=== PATIENT | male | born 1945 | race Caucasian/White ===

== ENCOUNTER 2017-11-09 07:27 | Day surgery (SDC) | payer MEDICARE, OTHER ==
[~2017-11-09] VITALS: Ht 180.3 cm; Wt 113.4 kg
[~2017-11-09 07:27] MED LIST: ASPIRIN EC325 MG PO; ATENOLOL25 MG PO; HYDROCHLOROTHIA25 MG PO; LIPITOR20 MG PO; METFORMIN HCL500 M2 PO; TYLENOL WITH C1 EACH PO; VALSARTAN160 MG PO
--- NOTE | 2017-11-09 08:27 | NUR ---
PT IS ALERT AND ORIENTED. HAS HAD SCOPES BEFORE, SEEMED TO HANDLE PREP WELL. PT HAS JUST RETURNED FROM VACATION IN [place] AND CHEERFUL. EXTENDED A BLESSING, WILL FOLLOW NEEDED
--- NOTE | 2017-11-09 09:10 | NUR ---
11/09/17 0910 Munira Baum TO PACU, RESP EVEN UNLABORED. ALERT AND AWAKE.
--- NOTE | 2017-11-10 10:43 | OR ---
[facility] [address] [place], [place] [address] Signed DATE OF OPERATION: 11/09/2017 SURGEON: Maine Luz MD PREOPERATIVE DIAGNOSIS: Family history of colon cancer (father, history of polyps). POSTOPERATIVE DIAGNOSIS: Polyps x3. PROCEDURE: Total colonoscopy to cecum with snare polypectomy x2 and cold morcellation polypectomy x1. ANESTHESIA: Intravenous sedation, fentanyl 100 mcg, Versed 8 mg. INDICATION: This 72-year-old white man is a patient of JUAN Tong and known to me from the past. He has undergone colonoscopy in the past, having adenomatous polyps. He has family history of colon cancer in his father. He is symptom-free at this time. He is admitted for surveillance colonoscopy understanding the risks of bleeding, infection, and perforation related to colonoscopy. FINDINGS: The prep was excellent. Complete colonoscopy was undertaken of the cecum. There were 3 polyps, all of them benign in appearance. One in the transverse colon (left transverse), another in proximal descending and other in the sigmoid. All were excised. There were no other findings of concern. PROCEDURE NOTE: The patient was brought to the endoscopy suite and placed in lateral decubitus position, given intravenous sedation to the point of slurred speech and nystagmus. Digital rectal examination was normal. An Olympus video colonoscope was passed in the rectum and manipulated throughout the colon, ultimately intubating the right colon with visualization of the cecum. Additional abdominal wall stabilization allow for advancement of the scope to visualize the cecum more fully. The scope was withdrawn from that point. Upon withdrawal of scope, no abnormality was seen in the left transverse colon, where a small sessile polyp Electronically Signed By: MAINE LUZ MD 11/10/17 1043 PATIENT NAME: MANDY SEGOVIA OPERATIVE REPORT DATE OF : 47 PHYSICIAN: MAINE LUZ MD REPORT #: [id number] REPORT IS CONFIDENTIAL AND NOT TO BE RELEASED WITHOUT AUTHORIZATION [facility] [address] [place], [place] [address] Signed was noted. Narrow-band imaging confirmed this likely to be adenomatous. With hot snare polypectomy technique, this lesion was excised. The scope was further withdrawn and another small polyp was noted in the proximal descending colon and this was similarly excised. Further withdrawal of scope showed a diminutive polyp in the sigmoid, which was excised with cold morcellation technique. Retroflexed view of the rectum was normal. Scope was removed. The patient was taken to the recovery room in good condition. CONCLUDING DIAGNOSIS: Polyps x3. PLAN: Recommend repeat colonoscopy in 3 to 5 years, sooner if symptoms should develop. He will return to the ongoing care of JUAN Tong. MD KARINA Reed/AMMON /[id number] cc: Jessica Vance PA-C Electronically Signed By: MAINE LUZ MD 11/10/17 1043 PATIENT NAME: MANDY SEGOVIA OPERATIVE REPORT DATE OF : 47 PHYSICIAN: MAINE LUZ MD REPORT #: [id number] REPORT IS CONFIDENTIAL AND NOT TO BE RELEASED WITHOUT AUTHORIZATION
== END 2017-11-09 09:45 | disposition home or self-care (01) ==
LOC: OPS 07:27 → DS 07:27 → OPS 08:30
PROVIDERS: Surgery
PROC: 0DBM8ZX Excision of Descending Colon, Via Natural or Artificial Opening Endoscopic, Diagnostic (ICD-10-PCS; 2017-11-09)
PROC: 0DBN8ZX Excision of Sigmoid Colon, Via Natural or Artificial Opening Endoscopic, Diagnostic (ICD-10-PCS; 2017-11-09)
PROC: 0DBL8ZX Excision of Transverse Colon, Via Natural or Artificial Opening Endoscopic, Diagnostic (ICD-10-PCS; principal; 2017-11-09 08:30)
DX: Z12.11 Encounter for screening for malignant neoplasm of colon (principal); D12.3 Benign neoplasm of transverse colon; D12.4 Benign neoplasm of descending colon; D12.5 Benign neoplasm of sigmoid colon; E11.9 Type 2 diabetes mellitus without complications; E78.5 Hyperlipidemia, unspecified; I10 Essential (primary) hypertension; E66.9 Obesity, unspecified; Z88.5 Allergy status to narcotic agent; Z88.8 Allergy status to other drugs, medicaments and biological substances; Z90.89 Acquired absence of other organs; Z98.890 Other specified postprocedural states; Z80.0 Family history of malignant neoplasm of digestive organs; Z86.010 Personal history of colon polyps; Z68.35 Body mass index [BMI] 35.0-35.9, adult
CPT/HCPCS: 88305; 99153; G0500; J2250; J3010; J7120

== ENCOUNTER 2020-12-24 07:33 | Day surgery (SDC) | payer MEDICARE, OTHER ==
[~2020-12-24] VITALS: Ht 175.3 cm; Wt 114.8 kg
[2020-12-24] MEDS ORDERED: COQ-10100 MG PO (07:59)
[2020-12-24] MEDS ORDERED: TURMERIC500 M2 PO (08:00)
[2020-12-24] MEDS ORDERED: B COMPLEX1 EACH PO (08:00)
--- NOTE | 2020-12-24 10:04 | NUR ---
12/24/20 1004 Reta Gottlieb 0939 PT ARRIVED IN PACU SLEEPY WITH NO C/O'S. ABD SOFT AND PASSING FLATUS. 0930 DR AT BEDSIDE TALKING WITH PT. 0940 DC INSTRUCTIONS GIVEN. ALL QUESTIONS ANSWERED. 0950 LEFT VIA W/C.
--- NOTE | 2020-12-26 21:11 | OR ---
[facility] [address] [place], [place] [address] Signed DATE OF OPERATION: 12/24/2020 SURGEON: Maine Luz MD PREOPERATIVE DIAGNOSES: 1. History of tubular adenoma x2, 2018. 2. Family history of colon cancer (mother). POSTOPERATIVE DIAGNOSES: 1. Diverticular changes, sigmoid. 2. Polyps x1, left colon. PROCEDURES: Total colonoscopy to cecum with cold snare polypectomy, left colon. ANESTHESIA: Intravenous sedation, fentanyl 100 mcg and Versed 5 mg. INDICATION: A 75-year-old white man, patient of JUAN Tong, here for surveillance colonoscopy. He underwent colonoscopy in 2018; at which time, he had two tubular adenomas, one in the sigmoid and another at 70 cm. He is symptom free, having no bleeding, diarrhea, or constipation. He does have family history of colon cancer in his mother. He was admitted at this time to undergo colonoscopy, understanding the risks of bleeding, infection, perforation. FINDINGS: The prep admittedly was marginal. A lot of irrigation was required for complete colonoscopy, but it was accomplished. There were scattered diverticula of sigmoid and left colon. There is a relatively small polyp of the left colon, which was excised with combination of snare and cold morcellation technique. There were no other findings of concern. DESCRIPTION OF PROCEDURE: The patient was brought to the endoscopy suite and placed in lateral decubitus position, given intravenous sedation to the point of slurred speech and nystagmus with full cardiopulmonary monitoring. Digital rectal examination was performed, which was normal. An Olympus video colonoscope was passed in the rectum and manipulated throughout the colon noting Electronically Signed By: MAINE LUZ MD 12/26/202110 PATIENT NAME: MANDY SEGOVIA OPERATIVE REPORT DATE OF : 47 REPORT #: [id number] PHYSICIAN: MAINE LUZ MD PCP: JESSICA VANCE PA-C REPORT IS CONFIDENTIAL AND NOT TO BE RELEASED WITHOUT AUTHORIZATION [facility] [address] [place], [place] [address] Signed diverticula. He had somewhat of a marginal bowel prep. A fair amount of fiber-laden liquid. No solid stool, however. Irrigation was required throughout. The scope was ultimately advanced to the right colon and visualization of the cecum was accomplished. The scope was withdrawn from that point. Examination showed no sign of abnormality. Upon withdrawal of scope until the mid descending colon where a small polyp was noted, it was probably adenomatous. It was excised with cold snare technique and combination also with cold morcellation technique. Further withdrawal of scope only confirmed a few diverticula. There were no other polyps. Retroflexed view was normal. Scope was removed, and the patient was taken to the recovery room in good condition. CONCLUDING DIAGNOSES: 1. Polyps x1. 2. Diverticulosis. PLAN: Recommend high-fiber diet. Recommend repeat colonoscopy in 5 years based on the polyp found and family history. MD KARINA Reed/AMMON /[id number] cc: Jessica Vance PA-C Copies: JESSICA VANCE PA-C ~ Electronically Signed By: MAINE LUZ MD 12/26/20 211 PATIENT NAME: MANDY SEGOVIA OPERATIVE REPORT DATE OF : 47 REPORT #: [id number] PHYSICIAN: MAINE LUZ MD PCP: JESSICA VANCE PA-C REPORT IS CONFIDENTIAL AND NOT TO BE RELEASED WITHOUT AUTHORIZATION
== END 2020-12-24 09:55 | disposition home or self-care (01) ==
LOC: DS 07:33 → OPS 07:33 → DS 08:30 → OPS 08:30
PROVIDERS: ATTEND Surgery
PROC: 0DBM8ZX Excision of Descending Colon, Via Natural or Artificial Opening Endoscopic, Diagnostic (ICD-10-PCS; principal; 2020-12-24 08:30)
DX: Z12.11 Encounter for screening for malignant neoplasm of colon (principal); D12.4 Benign neoplasm of descending colon; E78.5 Hyperlipidemia, unspecified; I10 Essential (primary) hypertension; Z86.010 Personal history of colon polyps; Z80.0 Family history of malignant neoplasm of digestive organs
CPT/HCPCS: 88305; 99153; G0500; J2250; J3010; J7121